=== PATIENT | male | born 1985 | race Caucasian/White ===

== ENCOUNTER 2017-06-10 18:36 | Emergency (ER) | payer OTHER ==
[~2017-06-10] VITALS: Ht 185.4 cm; Wt 111.6 kg
[2017-06-10] MEDS ORDERED: PRED50TA PO (19:06)
--- NOTE | 2017-06-10 19:07 | PHYS DOC ---
Past History Past Medical History: No Pertinent History Past Surgical History: No Surgical History Alcohol Use: None Drug Use: None Adult General Chief Complaint Chief Complaint: UPPER EXTREMITY PAIN HPI HPI 31-year-old male with a history of gout now resents to the emergency department complaining of swelling at the point of his left elbow. Patient is able to move his left elbow normally but there is swelling and soreness with what seems acute fluid collection in the skin of the point of the elbow. He cannot identify any specific trauma or overuse of the elbow or having rested it on a hard surface for a prolonged period or excessively hard. Patient has never had a history of traumatic bursitis. It was more swollen yesterday now the swelling has improved but it's mildly red and mildly warm so patient was concerned and came to the emergency department for evaluation. He had no abrasion puncture or insect bite and these findings spontaneously of all. He has no fevers chills sweats or shaking chills. Patient otherwise feels well and is asymptomatic except for the local findings at the elbow. He reports normal and painless range of motion of the joint and use of the forearm Review of Systems Review of Systems Constitutional: Denies fever or chills [] Eyes: Denies change in visual acuity, redness, or eye pain [] HENT: Denies nasal congestion or sore throat [] Respiratory: Denies cough or shortness of breath [] Cardiovascular: No additional information not addressed in HPI [] GI: Denies abdominal pain, nausea, vomiting, bloody stools or diarrhea [] : Denies dysuria or hematuria [] Musculoskeletal: Denies back pain or joint pain [] Integument: Denies rash or skin lesions [] Neurologic: Denies headache, focal weakness or sensory changes [] Endocrine: Denies polyuria or polydipsia [] Allergies Allergies Allergies Coded Allergies Type Severity Reaction Last Updated Verified No Known Drug Allergies 06/10/17 No Physical Exam Physical Exam Well-appearing 31-year-old male no acute distress. Minimal fluid in the olecranon bursa left elbow with mild erythema and trace warmth. Normal painless and full range of motion of the elbow without difficulty. No joint effusion. No evidence of skin integrity compromise. Bony T soft compartments remainder of exam is benign Constitutional: Well developed, well nourished, no acute distress, non-toxic appearance. [] HENT: Normocephalic, atraumatic, bilateral external ears normal, oropharynx moist, no oral exudates, nose normal. [] Eyes: , EOMI, conjunctiva normal, no discharge. [] Neck: Normal range of motion, no tenderness, supple, no stridor. [] Cardiovascular:Heart rate regular rhythm, no murmur [] Lungs & Thorax: Bilateral breath sounds clear to auscultation [] Abdomen: soft, no tenderness, no masses, no pulsatile masses. [] Skin: Warm, dry, no erythema, no rash. [] Back: No tenderness, no CVA tenderness. [] Extremities: No tenderness, no cyanosis, no clubbing, ROM intact, no edema. [] Neurologic: Alert and oriented X 3 no focal deficits noted. [] Psychologic: Affect normal, judgement normal, mood normal. [] Current Patient Data Vital Signs Vital Signs Date Time Temp Pulse Resp B/P (MAP) Pulse Ox O2 Delivery O2 Flow Rate FiO2 06/10/17 18:45 98.3 96 18 96 Room Air EKG EKG [] Radiology/Procedures Radiology/Procedures [] Course & Med Decision Making Course & Med Decision Making Signs and symptoms consistent with traumatic bursitis left olecranon bursa with no evidence of cellulitis or abscess. Well-appearing patient remainder of exam benign. Use anti-inflammatory medication and short course of prednisone prescribed is aware to apply ice and follow up with his primary care doctor. No clinical evidence of gout or septic joint. No clinical history of STD. Further workup or treatment not indicated today. Patient agrees with outpatient follow- up and strict return precautions given Dragon Disclaimer Dragon Disclaimer This chart was dictated in whole or in part using Voice Recognition software in a busy, high-work load, and often noisy Emergency Department environment. It may contain unintended and wholly unrecognized errors or omissions. Departure Departure: Impression: Primary Impression: Traumatic bursitis Additional Impression: Olecranon bursitis of left elbow Disposition: 01 HOME, SELF-CARE Condition: GOOD Patient Instructions: Olecranon Bursitis Additional Instructions: You have traumatic bursitis of your left elbow. This is also called olecranon bursitis. It is happened is the bursa or fluid sac over your joint has become inflamed. Sometimes this happens from more significant trauma such as putting excessive weight on the elbow point for a prolonged period and sometimes it can happen just from minor irritation of the elbow resting with some weight on a surface or repeatedly bumping against something. It's an inflammatory process and does not represent any kind of infection. Therefore anti-inflammatory medications are the most beneficial such as 800 mg of ibuprofen every 6 hours. We've given your prescription for short course of steroids. Finish this as prescribed. Take every morning with food so as to minimize the potential for stomach irritation. Apply ice whenever possible continuously for the next day and until your symptoms are resolved. Return immediately for new severe worsening symptoms and be aware that this condition could recur. If you find herself needing to repeatedly rest her elbow on a hard surface use a memory foam pad or gel pad when possible. Follow-up with your doctor and return immediately for new severe worsening symptoms Scripts Prednisone (PREDNISONE) 50 Mg Tablet 1 TAB PO DAILY for 5 Days, #5 TAB Prov: PHAN PLATT MD 06/10/17 Problem Qualifiers PHAN PLATT MD Jun 10, 2017 19:07
[2017-06-10] MEDS ORDERED: predniSONE 20 MG TABLET ONE (19:22)
[2017-06-10 19:25] VITALS: BP 140/60
[2017-06-10] MEDS ORDERED: predniSONE 10 MG TABLET PO ONE (19:30)
[2017-06-10] MEDS ORDERED: predniSONE 20 MG TABLET PO ONE (19:30)
== END 2017-06-10 19:32 | disposition home or self-care (01) ==
LOC: ER 18:36
DX: M70.22 Olecranon bursitis, left elbow (principal); Y93.89 Activity, other specified
CPT/HCPCS: 99283; J7512

== ENCOUNTER 2017-09-26 19:24 | Emergency (ER) | payer OTHER ==
[~2017-09-26] VITALS: Ht 182.9 cm; Wt 112.4 kg
[2017-09-26 19:24] VITALS: BP 137/91
[~2017-09-26 19:24] MED LIST: PRED50TA PO
[2017-09-26] MEDS ORDERED: traMADol 50 MG TABLET ONE (19:49)
[2017-09-26] MEDS ORDERED: IBUPROFEN 600 MG TABLET. PO ONE ×2 (19:49→20:00)
[2017-09-26] MEDS ORDERED: IBUP600T16 PO (19:54)
[2017-09-26] MEDS ORDERED: TRAM-48 PO (19:54)
--- NOTE | 2017-09-26 19:54 | PHYS DOC ---
Past History Past Medical History: No Pertinent History Past Surgical History: No Surgical History Alcohol Use: None Drug Use: None Adult General Chief Complaint Chief Complaint: KNEE INJURY HPI HPI Patient is a 32-year-old gentleman who presents here today complaining of pain to his left knee. Patient reports he injured his knee is in the process currently trying to get it evaluated by orthopedics and an MRI. Patient reports he been having issues with evaluation secondary to try care and regulations with [employer]. Patient reports that he saw his orthopedic doctor and he has proven for referral for an MRI however that has not been improving. Patient was hoping that he might be able to obtain an MRI while here. Patient reports he was told well with tolerating his pain however while he was doing operative therapy and in the pool he experienced severe pain yesterday has been having severe pain to his left knee since. The ports she has inability to raise his left leg and extend his knee completely. It's unclear whether not secondary to pain or weakness. Review of Systems Review of Systems Review of systems: Constitutional: Denies fever or chills Eyes: Denies change in visual acuity, redness, or eye pain HENT: Denies nasal congestion or sore throat Respiratory: Denies cough or shortness of breath All other systems were reviewed and found to be within normal limits, except as documented in this note. Physical exam: Constitutional: Well developed, well nourished, no acute distress, non-toxic appearance. HENT: Normocephalic, atraumatic, bilateral external ears normal, nose normal. Eyes: PERRLA, EOMI, conjunctiva normal, no discharge. Neck: Normal range of motion, no tenderness, supple, no stridor. Cardiovascular: Heart rate regular rhythm, Lungs & Thorax: Bilateral breath sounds clear to auscultation Abdomen: No abdominal distention. Skin: Warm, dry, no erythema, no rash. Back: Normal spinal curvature Extremities: Patient is tenderness palpation to his left knee. Patient is tenderness to palpation over his patellar tendon. Patient has no defect redness patellar tendon. Patient does have what appears to be tightening of the patellar tendon when he attempts to extend his knee off the table. Patient has no knee effusion. There is no warmth. Patient has no ligament laxity. Neurologic: Alert and oriented X 3, normal motor function, normal sensory function, no focal deficits noted. Psychologic: Affect normal, judgement normal, mood normal. Patient's ER physical exam was most unremarkable: Patient's exam appears to be consistent with patellar tendon inflammation. Exam is not consistent with a complete patellar tendon laceration or quadriceps tendon laceration. Chest x-ray as interpreted by ER physician reveals: Patient reports she's had multiple x-rays and the recent past with no acute abnormality. Patient has no acute trauma therefore x-ray not indicated. Assessment and plan: 1. 32-year-old gentleman who presents here today secondary to left knee pain. Patient likely has patellar tendinitis versus partial tear. I do not think that he would benefit from a cortisone injection since I do not know whether or not there is a tear. There is no effusion. There is no evidence of septic joint. Patient be placed in a knee immobilizer ibuprofen and Ultram patient will need to follow-up with his primary care physician/orthopedics/[employer] expedite his care and is obtaining of an MRI. Current Medications Current Medications Current Medications Medications (Trade) Dose Ordered Sig/Nikolas Start Time Stop Time Status Last Admin Dose Admin Ibuprofen (Motrin) 600 mg 1X ONCE 09/26/17 20:00 09/26/17 20:01 UNV Tramadol HCl (Ultram) 50 mg 1X ONCE 09/26/17 20:00 09/26/17 20:01 UNV Allergies Allergies Allergies Coded Allergies Type Severity Reaction Last Updated Verified No Known Drug Allergies 06/10/17 No EKG EKG [] Radiology/Procedures Radiology/Procedures [] Course & Med Decision Making Course & Med Decision Making Pertinent Labs and Imaging studies reviewed. (See chart for details) [] Dragon Disclaimer Dragon Disclaimer This electronic medical record was generated, in whole or in part, using a voice recognition dictation system. Departure Departure: Impression: Primary Impression: Knee pain, left Disposition: HOME, SELF-CARE Condition: IMPROVED Referrals: LUISA LOWERY DO (PCP) Patient Instructions: Knee Immobilization, Knee Pain Scripts Tramadol Hcl (ULTRAM) 50 Mg Tablet 50 MG PO PRN Q6HRS Y for PAIN, #20 TAB Prov: CHRISTINE BURROWS MD 09/26/17 Ibuprofen (IBUPROFEN) 600 Mg Tablet 600 MG PO QID Y for PAIN, #20 Prov: CHRISTINE BURROWS MD 09/26/17 CHRISTINE BURROWS MD Sep 26, 2017 19:54
[2017-09-26] MEDS ORDERED: traMADol 50 MG TABLET PO ONE (20:00)
== END 2017-09-26 20:04 | disposition home or self-care (01) ==
LOC: ER 19:24
DX: M25.562 Pain in left knee (principal)
CPT/HCPCS: 29505; 99283-25